=== PATIENT | male | born 1980 | race African-American/Black ===

== ENCOUNTER 2016-10-01 18:21 | Emergency (ER) | payer OTHER | END 2016-10-01 19:53 | disposition home or self-care (01) | LOC: ER 18:21 | PROC: 2W3MX1Z Immobilization of Left Lower Extremity using Splint (ICD-10-PCS; principal; 2016-10-01) | DX: S86.912A Strain of unspecified muscle(s) and tendon(s) at lower leg level, left leg, initial encounter (principal); V49.9XXA Car occupant (driver) (passenger) injured in unspecified traffic accident, initial encounter | CPT/HCPCS: 73560-LT; 90471; 90714; 99283 ==